=== PATIENT | male | born 1940 | race Caucasian/White ===

== ENCOUNTER 2018-03-15 12:14 | Inpatient (IN) | payer OTHER ==
[2018-03-15 13:10] LABS: BASO % 0.4 % (0.0-1.0); EOS # 0.1 10^3/uL (0.0-0.50); EOS % 1.6 % (0.0-3.0); HEMATOCRIT 50.4 % (42.0-52.0); HEMOGLOBIN 16.7 g/dl (13.5-17.5); IMMATURE GRANULOCYTE % 0.1 % (0-3.0); LYMPH # 1.7 10^3/uL (1.5-4.5); LYMPH % 18.9 % (24.0-44.0); MEAN CORPUSCULAR HEMOGLOBIN 30.8 pg (27.0-33.0); MEAN CORPUSCULAR HGB CONC 33.1 g/dl (32.0-36.5); MONO # 1.1 10^3/uL (0.0-0.8); MONO % 12.3 % (0.0-5.0); NEUTROPHILS # 5.9 10^3/uL (1.8-7.7); NEUTROPHILS % 66.7 % (36.0-66.0); PLATELET COUNT, AUTOMATED 189 10^3/uL (150-450); RED BLOOD COUNT 5.42 10^6/uL (4.30-6.10); RED CELL DISTRIBUTION WIDTH 13.3 % (11.5-14.5); WHITE BLOOD COUNT 8.9 10^3/uL (4.0-10.0)
[2018-03-15 13:16] LABS: ALBUMIN 3.7 GM/DL (3.2-5.2); ALBUMIN/GLOBULIN RATIO 1.37 (1.00-1.93); ALKALINE PHOSPHATASE 113 U/L (45-117); ALT/SGPT 37 U/L (12-78); ANION GAP 10 MEQ/L (8-16); AST/SGOT 27 U/L (7-37); BILIRUBIN,DIRECT 0.6 MG/DL (0.0-0.2); BILIRUBIN,TOTAL 1.4 MG/DL (0.2-1.0); BLOOD UREA NITROGEN 19 MG/DL (7-18); C REACTIVE PROTEIN QUANTITATIV 1.75 MG/DL (0.00-0.30); CARBON DIOXIDE LEVEL 26 MEQ/L (21-32); CHLORIDE LEVEL 103 MEQ/L (98-107); CPK CREATINE PHOSPHOKINASE 120 U/L (39-308); GLOMERULAR FILTRATION RATE > 60.0 (>42); GLUCOSE, FASTING 199 MG/DL (70-100); LIPASE 168 U/L (73-393); MAGNESIUM LEVEL 2.1 MG/DL (1.8-2.4); MB/CK RELATIVE INDEX 3.25 (< OR =4); POTASSIUM SERUM 4.3 MEQ/L (3.5-5.1); SODIUM LEVEL 139 MEQ/L (136-145); TOTAL PROTEIN 6.4 GM/DL (6.4-8.2); TROPONIN I 0.04 NG/ML (< 0.10)
[2018-03-15 13:28] LABS: INR 1.09; PROTHROMBIN TIME 14.2 SECONDS (12.1-14.4)
[2018-03-15 13:29] LABS: PARTIAL THROMBOPLASTIN TIME 33.5 SECONDS (25.4-37.6)
[2018-03-15 13:37] LABS: ERYTHROCYTE SEDIMENTATION RATE 1 mm/hr (0-20)
[2018-03-15 14:18] LABS: PSA SCREENING 0.5 NG/ML (< 4.0)
[2018-03-15 14:27] LABS: ESTIMATED AVERAGE GLUCOSE 232 MG/DL (60-110); HEMOGLOBIN A1c 9.7 %
[2018-03-15] MEDS ORDERED: ISOVUE-370 76% 100ML VIAL (Q9967) As Ordered (14:30)
[2018-03-15] MEDS: FUROSEMIDE 40 MG/4 ML VIAL (J1940) IV (17:02)
[2018-03-15 17:36] LABS: NT-PRO BNP 3527 PG/ML (<450)
[2018-03-15] MEDS ORDERED: GLUCAGON FOR INJ 1 MG VIAL (J1610) SC (19:30)
[2018-03-15] MEDS ORDERED: GLUCOSE 4 GM CHEW TABLET PO (19:30)
[2018-03-15] MEDS ORDERED: DEXTROSE 50% 50 ML SYRINGE IV (19:30)
[2018-03-15 19:56] LABS: CHOLESTEROL LEVEL 157 MG/DL (<200); CHOLESTEROL RISK RATIO 4.243 (<5); HDL CHOLESTEROL 37 MG/DL (>40); LDL CHOLESTEROL 104 MG/DL (<100); NON-HDL-C 120 MG/DL; TRIGLYCERIDES LEVEL 81 MG/DL (<150)
[2018-03-15 20:54] LABS: TROPONIN I 0.05 NG/ML (< 0.10)
[2018-03-15 21:18] LABS: BEDSIDE GLUCOSE 139 MG/DL (83-110)
[2018-03-15] MEDS: HumaLOG INSULIN (NovoLOG) PER UNIT SC (21:58)
[2018-03-15] MEDS: HEPARIN SOD (PORCINE) 5000 UNITS/ML VIAL SC (22:16)
[2018-03-16 03:09] LABS: TROPONIN I 0.04 NG/ML (< 0.10)
[2018-03-16 05:41] LABS: HEMATOCRIT 44.6 % (42.0-52.0); HEMOGLOBIN 14.8 g/dl (13.5-17.5); MEAN CORPUSCULAR HEMOGLOBIN 30.9 pg (27.0-33.0); MEAN CORPUSCULAR HGB CONC 33.2 g/dl (32.0-36.5); MEAN CORPUSCULAR VOLUME 93.1 fl (80.0-96.0); PLATELET COUNT, AUTOMATED 149 10^3/uL (150-450); RED BLOOD COUNT 4.79 10^6/uL (4.30-6.10); RED CELL DISTRIBUTION WIDTH 13.2 % (11.5-14.5); WHITE BLOOD COUNT 6.5 10^3/uL (4.0-10.0)
[2018-03-16] MEDS: FUROSEMIDE 20 MG/2 ML VIAL (J1940) IV (05:42)
[2018-03-16] MEDS: HEPARIN SOD (PORCINE) 5000 UNITS/ML VIAL SC ×3 (05:42→21:40)
[2018-03-16 05:53] LABS: ANION GAP 8 MEQ/L (8-16); BLOOD UREA NITROGEN 17 MG/DL (7-18); CALCIUM LEVEL 7.7 MG/DL (8.8-10.2); CARBON DIOXIDE LEVEL 28 MEQ/L (21-32); CHLORIDE LEVEL 105 MEQ/L (98-107); CREATININE FOR GFR 0.85 MG/DL (0.70-1.30); GLOMERULAR FILTRATION RATE > 60.0 (>42); GLUCOSE, FASTING 190 MG/DL (70-100); POTASSIUM SERUM 3.6 MEQ/L (3.5-5.1); SODIUM LEVEL 141 MEQ/L (136-145)
[2018-03-16] MEDS: HumaLOG INSULIN (NovoLOG) PER UNIT SC ×3 (08:50→17:57)
[2018-03-16] MEDS: FLUBLOK(EGG FREE)(QUAD)INFLUENZA VACC 0.5ML SYRINGE (90682)18YRS&OLDER IM (08:52)
[2018-03-16] MEDS: PNEUMOCOCCAL VACCINE 0.5ML SYRINGE(90732) PNEUMOVAX 23 IM (08:53)
[2018-03-16 11:55] LABS: BEDSIDE GLUCOSE 73 MG/DL (83-110)
[2018-03-16] MEDS: ASPIRIN 81 MG ENTERIC TAB PO (12:48)
[2018-03-16] MEDS: POTASSIUM CHLORIDE 10 MEQ SR TABLET PO (12:49)
[2018-03-16 16:59] LABS: BEDSIDE GLUCOSE 178 MG/DL (83-110)
[2018-03-16] MEDS: FUROSEMIDE 40 MG/4 ML VIAL (J1940) IV (17:58)
[2018-03-16] MEDS: ATORVASTATIN 20 MG TAB PO (20:27)
[2018-03-16 20:48] LABS: BEDSIDE GLUCOSE 102 MG/DL (83-110)
[2018-03-16 21:00] LABS: CREATININE,RANDOM URINE 38.7 MG/DL
[2018-03-16 21:00] LABS: TOTAL PROTEIN,RANDOM URINE < 5.0 MG/DL (0.0-12.0)
[2018-03-17] MEDS: FUROSEMIDE 40 MG/4 ML VIAL (J1940) IV ×2 (05:06→16:58)
[2018-03-17] MEDS: HEPARIN SOD (PORCINE) 5000 UNITS/ML VIAL SC ×3 (05:06→20:59)
[2018-03-17 05:56] LABS: HEMATOCRIT 46.4 % (42.0-52.0); HEMOGLOBIN 15.3 g/dl (13.5-17.5); MEAN CORPUSCULAR HEMOGLOBIN 30.5 pg (27.0-33.0); MEAN CORPUSCULAR VOLUME 92.4 fl (80.0-96.0); PLATELET COUNT, AUTOMATED 157 10^3/uL (150-450); RED BLOOD COUNT 5.02 10^6/uL (4.30-6.10); RED CELL DISTRIBUTION WIDTH 13.2 % (11.5-14.5); WHITE BLOOD COUNT 7.4 10^3/uL (4.0-10.0)
[2018-03-17 06:35] LABS: ANION GAP 8 MEQ/L (8-16); BLOOD UREA NITROGEN 22 MG/DL (7-18); CALCIUM LEVEL 8.2 MG/DL (8.8-10.2); CARBON DIOXIDE LEVEL 30 MEQ/L (21-32); CHLORIDE LEVEL 103 MEQ/L (98-107); CHOLESTEROL LEVEL 134 MG/DL (<200); CHOLESTEROL RISK RATIO 4.187 (<5); CREATININE FOR GFR 1.02 MG/DL (0.70-1.30); GLOMERULAR FILTRATION RATE > 60.0 (>42); GLUCOSE, FASTING 156 MG/DL (70-100); HDL CHOLESTEROL 32 MG/DL (>40); LDL CHOLESTEROL 79 MG/DL (<100); NON-HDL-C 102 MG/DL; POTASSIUM SERUM 4.5 MEQ/L (3.5-5.1); SODIUM LEVEL 141 MEQ/L (136-145); TRIGLYCERIDES LEVEL 117 MG/DL (<150)
[2018-03-17] MEDS: HumaLOG INSULIN (NovoLOG) PER UNIT SC ×3 (07:30→16:58)
[2018-03-17] MEDS: ASPIRIN 81 MG ENTERIC TAB PO (08:36)
[2018-03-17 11:33] LABS: BEDSIDE GLUCOSE 189 MG/DL (83-110)
[2018-03-17] MEDS: MIRALAX *UNIT DOSE* 17GM PACKET PO (12:22)
[2018-03-17] MEDS: SENOKOT S TAB PO ×2 (12:22→20:59)
[2018-03-17 16:39] LABS: BEDSIDE GLUCOSE 192 MG/DL (83-110)
[2018-03-17 20:01] LABS: BEDSIDE GLUCOSE 173 MG/DL (83-110)
[2018-03-17] MEDS: ATORVASTATIN 20 MG TAB PO (20:59)
[2018-03-18] MEDS: HEPARIN SOD (PORCINE) 5000 UNITS/ML VIAL SC ×3 (05:40→21:02)
[2018-03-18] MEDS: FUROSEMIDE 40 MG/4 ML VIAL (J1940) IV ×2 (05:40→17:33)
[2018-03-18 05:54] LABS: HEMATOCRIT 43.8 % (42.0-52.0); HEMOGLOBIN 14.5 g/dl (13.5-17.5); MEAN CORPUSCULAR HEMOGLOBIN 30.3 pg (27.0-33.0); MEAN CORPUSCULAR HGB CONC 33.1 g/dl (32.0-36.5); MEAN CORPUSCULAR VOLUME 91.6 fl (80.0-96.0); PLATELET COUNT, AUTOMATED 148 10^3/uL (150-450); RED BLOOD COUNT 4.78 10^6/uL (4.30-6.10); WHITE BLOOD COUNT 6.7 10^3/uL (4.0-10.0)
[2018-03-18 06:19] LABS: ANION GAP 7 MEQ/L (8-16); BLOOD UREA NITROGEN 21 MG/DL (7-18); CALCIUM LEVEL 7.8 MG/DL (8.8-10.2); CARBON DIOXIDE LEVEL 32 MEQ/L (21-32); CHLORIDE LEVEL 99 MEQ/L (98-107); CREATININE FOR GFR 0.96 MG/DL (0.70-1.30); GLOMERULAR FILTRATION RATE > 60.0 (>42); GLUCOSE, FASTING 149 MG/DL (70-100); MAGNESIUM LEVEL 1.9 MG/DL (1.8-2.4); POTASSIUM SERUM 3.6 MEQ/L (3.5-5.1); SODIUM LEVEL 138 MEQ/L (136-145)
[2018-03-18] MEDS: HumaLOG INSULIN (NovoLOG) PER UNIT SC ×3 (08:16→17:33)
[2018-03-18] MEDS: ASPIRIN 81 MG ENTERIC TAB PO (09:51)
[2018-03-18] MEDS: SENOKOT S TAB PO ×2 (09:51→21:01)
[2018-03-18] MEDS: MIRALAX *UNIT DOSE* 17GM PACKET PO (09:51)
[2018-03-18 11:38] LABS: BEDSIDE GLUCOSE 171 MG/DL (83-110)
[2018-03-18 16:26] LABS: BEDSIDE GLUCOSE 181 MG/DL (83-110)
[2018-03-18 19:57] LABS: BEDSIDE GLUCOSE 193 MG/DL (83-110)
[2018-03-18 19:57] LABS: BEDSIDE GLUCOSE 175 MG/DL (83-110)
[2018-03-18] MEDS: ATORVASTATIN 20 MG TAB PO (21:01)
[2018-03-19] MEDS: FUROSEMIDE 40 MG/4 ML VIAL (J1940) IV (05:37)
[2018-03-19] MEDS: HEPARIN SOD (PORCINE) 5000 UNITS/ML VIAL SC (05:37)
[2018-03-19 06:07] LABS: HEMATOCRIT 45.6 % (42.0-52.0); HEMOGLOBIN 15.1 g/dl (13.5-17.5); MEAN CORPUSCULAR HEMOGLOBIN 30.3 pg (27.0-33.0); MEAN CORPUSCULAR HGB CONC 33.1 g/dl (32.0-36.5); MEAN CORPUSCULAR VOLUME 91.6 fl (80.0-96.0); PLATELET COUNT, AUTOMATED 149 10^3/uL (150-450); RED BLOOD COUNT 4.98 10^6/uL (4.30-6.10); WHITE BLOOD COUNT 6.4 10^3/uL (4.0-10.0)
[2018-03-19 06:24] LABS: ANION GAP 6 MEQ/L (8-16); BLOOD UREA NITROGEN 21 MG/DL (7-18); CARBON DIOXIDE LEVEL 31 MEQ/L (21-32); CHLORIDE LEVEL 100 MEQ/L (98-107); CREATININE FOR GFR 0.85 MG/DL (0.70-1.30); GLOMERULAR FILTRATION RATE > 60.0 (>42); GLUCOSE, FASTING 146 MG/DL (70-100); MAGNESIUM LEVEL 1.9 MG/DL (1.8-2.4); POTASSIUM SERUM 3.6 MEQ/L (3.5-5.1); SODIUM LEVEL 137 MEQ/L (136-145)
[2018-03-19] MEDS: HumaLOG INSULIN (NovoLOG) PER UNIT SC ×2 (07:48→12:35)
[2018-03-19] MEDS: ASPIRIN 81 MG ENTERIC TAB PO (10:10)
[2018-03-19] MEDS: SENOKOT S TAB PO (10:10)
[2018-03-19] MEDS: MIRALAX *UNIT DOSE* 17GM PACKET PO (10:10)
[2018-03-19] MEDS: EUCERIN 120GM CREAM TOP (11:11)
[2018-03-19 11:34] LABS: NT-PRO BNP 2297 PG/ML (<450)
[2018-03-19 12:32] LABS: BEDSIDE GLUCOSE 199 MG/DL (83-110)
== END 2018-03-19 13:42 | disposition short-term general hospital (02) | DRG 293 ==
LOC: M ED 12:14 → M ED INP 19:19 → M MSPAV 21:03
DX: I11.0 Hypertensive heart disease with heart failure (principal); I50.33 Acute on chronic diastolic (congestive) heart failure; E11.9 Type 2 diabetes mellitus without complications; E66.9 Obesity, unspecified; Z68.38 Body mass index [BMI] 38.0-38.9, adult; I35.0 Nonrheumatic aortic (valve) stenosis; M17.2 Bilateral post-traumatic osteoarthritis of knee; Z88.0 Allergy status to penicillin; R60.1 Generalized edema; Z91.19 Patient's noncompliance with other medical treatment and regimen

== ENCOUNTER → 2018-10-14 | Outpatient (CLI) | payer MEDICARE ==
--- NOTE | 2018-10-14 23:01 | REP ---
Clinical: Hypertension and chronic medical renal disease. Technique: Whitfield scale and color Doppler evaluation of the kidneys and renal vasculature using curved array transducer. Findings: The kidneys demonstrate increased parenchymal echogenicity suggesting chronic medical renal disease without hydronephrosis. Right kidney measures 11.9 x 5.2 x 4.9 cm and includes multiple parenchymal and cortical based simple and complex cysts measuring up to roughly 3.5 cm maximal diameter. Left kidney measures 10.8 x 5.7 x 5.4 cm and includes multiple simple and complex cysts measuring up to 2.4 cm maximal diameter. Bladder is incompletely distended and grossly normal by current evaluation. Prostate gland is heterogeneous and measures 4.8 x 4.4 x 5.0 cm. Color Doppler evaluation of the renal vasculature demonstrates normal arterial wave patterns, velocities, renal aortic ratios, resistive indices and the acceleration time. No sonographic evidence for renal arterial stenosis noted. Renal vein is patent. Right Kidney: Peak arterial velocity: 71 cm/sec . Renal aortic ratio: 1.4 . Resistive indices: 0.56 - 0.79 . Acceleration times: 0.04 - 0.06 . Left kidney: Peak arterial velocity: 87 cm/sec . Renal aortic ratio: 1.7 . Resistive indices: 0.62 - 0.17 . Acceleration times: 0.03 - 0.04 . Impression: 1. Evidence for chronic medical renal disease with suspected bilateral simple and complex cysts. No hydronephrosis. 2. No sonographic evidence for renal arterial stenosis. Electronically Signed by Wilmer Gaxiola MD 10/14/2018 10:53 P
== END ==
LOC: M RAD 08:56
PROVIDERS: ATTEND Family Medicine
DX: N40.0 Benign prostatic hyperplasia without lower urinary tract symptoms (principal); I70.1 Atherosclerosis of renal artery; N28.1 Cyst of kidney, acquired

== ENCOUNTER → 2018-10-30 | Outpatient (CLI) | payer MEDICARE ==
[2018-10-30 18:05] LABS: APPEARANCE, URINE HAZY (CLEAR); BACTERIA, URINE AUTO NEGATIVE (NEGATIVE); BILIRUBIN, URINE AUTO NEGATIVE (NEGATIVE); BLOOD, URINE BLOOD NEGATIVE (NEGATIVE); COLOR, URINE YELLOW (YELLOW); GLUCOSE, URINE (UA) AUTO NEGATIVE (NEGATIVE); KETONE, URINE AUTO NEGATIVE (NEGATIVE); LEUKOCYTE ESTERASE, URINE AUTO NEGATIVE (NEGATIVE); NITRITE, URINE AUTO NEGATIVE (NEGATIVE); PROTEIN, URINE AUTO NEGATIVE (NEGATIVE); RBC, URINE AUTO 2 /HPF (0-3); SPECIFIC GRAVITY URINE AUTO 1.017 (1.002-1.035); SQUAMOUS EPITHELIAL CELL UR AU 0 /HPF (0-6); UROBILINOGEN, URINE AUTO 0.2 mg/dL (0.0-2.0); WBC, URINE AUTO 2 /HPF (0-3)
== END ==
LOC: M WUC 15:42
PROVIDERS: ATTEND Nurse Practitioner Family
DX: N28.1 Cyst of kidney, acquired (principal)
CPT/HCPCS: 51798; 81001; 87086; G0463

== ENCOUNTER → 2018-11-03 | Outpatient (REF) | payer MEDICARE ==
[2018-11-03 19:20] LABS: CALCIUM LEVEL 9.2 MG/DL (8.8-10.2); CREATININE FOR GFR 1.46 MG/DL (0.70-1.30); GLOMERULAR FILTRATION RATE 49.6 (>42); POTASSIUM SERUM 4.4 MEQ/L (3.5-5.1)
== END ==
LOC: M LABDRWAD 19:03
PROVIDERS: ATTEND Nurse Practitioner Family
DX: N28.1 Cyst of kidney, acquired (principal)

== ENCOUNTER → 2018-12-26 | Outpatient (CLI) | payer MEDICARE ==
[~2018-12-26] MED LIST: PROHANCE 279.3MG/ML 5ML VIAL (A9576) As Ordered ONE
--- NOTE | 2018-12-27 06:51 | REP ---
MRI KIDNEYS WITH AND WITHOUT CONTRAST: COMPARISON: Renal ultrasound 10/14/[address] 03/15/2018. Both kidneys demonstrate multiple cysts. Most are subcentimeter in size. Two dominant cysts of the right kidney in the upper aspect are exophytic, one anteriorly and one laterally, both measuring 3.2 to 3.3 cm in maximum diameter. The largest cyst on the left is also exophytic anterolaterally in the upper pole, 2.3 cm in maximum diameter. None of the bilateral renal cysts demonstrate suspicious enhancement and all appear benign. There is no hydronephrosis. The visualized liver, spleen, adrenals, pancreas are unremarkable. No adenopathy or free fluid is seen in the visualized abdomen. IMPRESSION: Multiple bilateral renal cysts appear benign with no suspicious characteristics. Electronically Signed by Lalo Whitfield MD 12/28/2018 05:40 P
== END ==
LOC: M RAD 16:12
PROVIDERS: ATTEND Nurse Practitioner Family
DX: N28.1 Cyst of kidney, acquired (principal)
CPT/HCPCS: 74183; A9576

== ENCOUNTER → 2019-03-10 | Outpatient (REF) | payer MEDICARE ==
[~2019-03-10] MED LIST changes: +ASPI81TA85 PO; +CHOL100029 PO; +FINA5TAB2 PO; +MAGN400C PO; +METF500T13 PO; +METO50TA7 PO; +MULTCAP PO; +PRAV20TA2 PO; -PROHANCE 279.3MG/ML 5ML VIAL (A9576) As Ordered ONE; +VITA500C24 PO
[2019-03-10 14:35] LABS: TOTAL VOLUME, URINE 1300 ML
[2019-03-10 15:17] LABS: TOTAL PROTEIN 24 HOUR URINE 656.5 MG/24HR (50-150); TOTAL PROTEIN,RANDOM URINE 50.5 MG/DL (0.0-12.0); URINE TOTAL PROTEIN 50.5 MG/DL (0-12)
[2019-03-12 15:33] LABS: UPEP INTERPRETATION M-SPIKE IN BETA 2; URINE VOLUME 1300 ML
== END ==
LOC: M LAB REF 13:49
PROVIDERS: ATTEND Internal Medicine Hematology
DX: D47.2 Monoclonal gammopathy (principal)

== ENCOUNTER → 2019-03-11 | Outpatient (CLI) | payer MEDICARE ==
[~2019-03-11] MED LIST changes: +LIDOCAINE 1% MDV 20ML VIAL As Ordered ONE
[2019-03-11 13:53] VITALS: BP 166/82
--- NOTE | 2019-03-11 14:50 | REP ---
IR CT guided bone marrow biopsy. Clinical information: MGUS. Renal disease. Physician: Dr. Wilks. Procedure: The patient was advised of the benefits, risks and alternatives of the procedure and informed consent was obtained. The time-out was performed with verification of the patient's name, MRN, site of procedure and type of procedure to be performed. The patient was positioned in the prone position on the table. The site was prepped and draped in the usual sterile fashion. The physician spent 45 minutes of continuous face to face time with the patient. Preliminary CT of the pelvis demonstrates osteolucencies within the iliac bones. The anticipated puncture site over the right iliac bone was anesthetized with lidocaine. A bone biopsy device was inserted into the right iliac bone under intermittent CT guidance. Aspirate, clot and core were obtained per protocol. The specimen was labeled with the patient's name and medical record number and sent for further analysis. The biopsy device was removed, pressure held and hemostasis achieved. A sterile dressing was applied to the site. The patient tolerated the procedure well and was returned to the PRU in stable condition. EBL: < 5 ml. Complications: None. Conclusion: 1. 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 2. Successful CT guided bone marrow biopsy. Patient to follow up with referring provider for biopsy results. Thank you for this referral. Electronically Signed by Teresa Wilks MD 03/11/2019 01:46 P
== END ==
LOC: M IRPRO 12:22
PROVIDERS: ATTEND Radiology Diagnostic Radiology
DX: D47.2 Monoclonal gammopathy (principal); N28.9 Disorder of kidney and ureter, unspecified; Z79.899 Other long term (current) drug therapy

== ENCOUNTER → 2019-05-20 | Outpatient (CLI) | payer MEDICARE ==
[~2019-05-20] MED LIST changes: +CYCL1CAP2 PO; +DECA4TAB PO; -LIDOCAINE 1% MDV 20ML VIAL As Ordered ONE; +VITA500079 PO
--- NOTE | 2019-05-20 14:52 | REP ---
Clinical: Monoclonal gammopathy. Technique: Standard radiographic adult bone survey (16 total images). Findings: Generalized age-related degenerative changes are appreciated primarily involving the cervical, thoracic, lumbar spine as well as degenerative changes to the pelvis/hips and bilateral knees. No pathologic fractures are identified and no lytic, blastic, or sclerotic osseous lesions are appreciated to suggest malignancy or significant pathology. Impression: 1. Generalized age-related degenerative changes. 2. No evidence for metastatic disease or further significant osseous pathology. Electronically Signed by Wilmer Gaxiola MD 05/20/2019 02:42 P
== END ==
LOC: M RAD 13:31
PROVIDERS: ATTEND Internal Medicine Hematology
DX: D47.2 Monoclonal gammopathy (principal); M15.9 Polyosteoarthritis, unspecified

== ENCOUNTER → 2019-12-02 | Outpatient (CLI) | payer MEDICARE ==
[~2019-12-02] MED LIST changes: -ASPI81TA85 PO; +ASPI81TA86 PO
--- NOTE | 2019-12-14 13:17 | REP ---
CAROTID DOPPLER ULTRASOUND CLINICAL: Prior endarterectomy and stent placement. TECHNIQUE: Real-time cruz scale and color Doppler evaluation using linear high frequency transducer FINDINGS: Minimal bilateral intimal thickening is appreciated of the carotid arteries extending to the carotid bulbs. Relatively normal laminar flow is appreciated without obvious areas of stenosis/stricture or occlusion. A stent is identified in the proximal left internal carotid artery with satisfactory flow and no evidence for stenosis or occlusion. Normal flow direction noted to the vertebral arteries. PEAK FLOW VELOCITY ANALYSIS RIGHT LEFT ICA PSV 106.0 cm/s 99.8 cm/s ICA EDV 27.1 cm/s 20.5 cm/s ECA PSV 98.5 cm/s 195.1 cm/s CCA PSV 85.9 cm/s 76.4 cm/s ICA/CCA RATIO 1.23 1.31 IMPRESSION: 1. Left internal carotid stent noted and patent. 2. Bilateral smooth intimal thickening without evidence for stenosis or occlusion. MTDD
== END ==
LOC: M RAD 15:38
PROVIDERS: ATTEND Family Medicine
DX: I65.22 Occlusion and stenosis of left carotid artery (principal); Z95.828 Presence of other vascular implants and grafts

== ENCOUNTER → 2020-05-09 | Outpatient (REF) | payer MEDICARE ==
[~2020-05-09] MED LIST changes: +BAYE325T12 PO; +MULT-90 PO; +NORV5TAB PO; +PRAV40TA2 PO; +TERA10CA3 PO
[2020-05-09 19:00] LABS: ALBUMIN 4.1 GM/DL (3.2-5.2); BILIRUBIN,TOTAL 0.5 MG/DL (0.2-1.0); CHOLESTEROL RISK RATIO 6.466 (<5); CREATININE FOR GFR 1.6 MG/DL (0.70-1.30); GLOMERULAR FILTRATION RATE 44.4 (>35); POTASSIUM SERUM 4.8 MEQ/L (3.5-5.1); TOTAL PROTEIN 7.1 GM/DL (6.4-8.2)
== END ==
LOC: M LABDRWAD 16:18
PROVIDERS: ATTEND Physician Assistant Medical
DX: I35.0 Nonrheumatic aortic (valve) stenosis (principal); I50.33 Acute on chronic diastolic (congestive) heart failure; I50.22 Chronic systolic (congestive) heart failure; E78.2 Mixed hyperlipidemia; N18.9 Chronic kidney disease, unspecified; I11.0 Hypertensive heart disease with heart failure; Z95.2 Presence of prosthetic heart valve; I65.22 Occlusion and stenosis of left carotid artery; I25.10 Atherosclerotic heart disease of native coronary artery without angina pectoris; R60.9 Edema, unspecified; E66.9 Obesity, unspecified

== ENCOUNTER → 2020-05-09 | Outpatient (REF) | payer MEDICARE ==
[2020-05-09 18:28] LABS: BASO # 0.1 10^3/uL (0.0-0.2); BASO % 0.9 % (0.0-1.0); EOS # 0.4 10^3/uL (0.0-0.5); EOS % 4.3 % (0.0-3.0); HEMOGLOBIN 16.3 g/dl (13.5-17.5); LYMPH # 1.8 10^3/uL (1.5-5.0); LYMPH % 21.8 % (24.0-44.0); MEAN CORPUSCULAR HEMOGLOBIN 32.2 pg (27.0-33.0); MEAN CORPUSCULAR VOLUME 94.9 fl (80.0-96.0); MONO # 0.9 10^3/uL (0.0-0.8); MONO % 11.4 % (0.0-5.0); NEUTROPHILS % 61.2 % (36.0-66.0); PLATELET COUNT, AUTOMATED 199 10^3/uL (150-450); RED BLOOD COUNT 5.06 10^6/uL (4.30-6.10); WHITE BLOOD COUNT 8.2 10^3/uL (4.0-10.0)
[2020-05-09 18:59] LABS: ALBUMIN 4.2 GM/DL (3.2-5.2); ALT/SGPT 35 U/L (12-78); BILIRUBIN,TOTAL 0.4 MG/DL (0.2-1.0); BLOOD UREA NITROGEN 33 MG/DL (7-18); CALCIUM LEVEL 9.2 MG/DL (8.8-10.2); CARBON DIOXIDE LEVEL 28 MEQ/L (21-32); CHLORIDE LEVEL 104 MEQ/L (98-107); GLOMERULAR FILTRATION RATE 41.4 (>35); GLUCOSE, FASTING 254 MG/DL (70-100); SODIUM LEVEL 141 MEQ/L (136-145); TOTAL PROTEIN 7.1 GM/DL (6.4-8.2)
[2020-05-11 12:32] LABS: ALBUMIN 4.55 GM/DL (3.29-5.55); ALBUMIN % 64.1 % (55.8-66.1); ALPHA-1-GLOBULIN % 3.7 % (2.9-4.9); ALPHA-1-GLOBULINS 0.26 GM/DL (0.17-0.41); ALPHA-2-GLOBULINS 0.94 GM/DL (0.42-0.99); ALPHA-2-GLOBULINS % 13.3 % (7.1-11.8); BETA-1-GLOBULINS 0.48 GM/DL (0.28-0.60); BETA-1-GLOBULINS % 6.8 % (4.7-7.2); BETA-2-GLOBULINS % 4.2 % (3.2-6.5); GAMMA GLOBULIN % 7.9 % (11.1-18.8); GAMMA GLOBULINS 0.56 GM/DL (0.65-1.58)
== END ==
LOC: M LABDRWAD 16:15 → M LAB REF 16:15
PROVIDERS: ATTEND Specialist
DX: C90.00 Multiple myeloma not having achieved remission (principal); I35.0 Nonrheumatic aortic (valve) stenosis; I50.33 Acute on chronic diastolic (congestive) heart failure; I50.22 Chronic systolic (congestive) heart failure; E78.2 Mixed hyperlipidemia; N18.9 Chronic kidney disease, unspecified; I11.0 Hypertensive heart disease with heart failure; Z95.2 Presence of prosthetic heart valve; I65.22 Occlusion and stenosis of left carotid artery; I25.10 Atherosclerotic heart disease of native coronary artery without angina pectoris; R60.9 Edema, unspecified; E66.9 Obesity, unspecified

== ENCOUNTER → 2022-07-02 | Outpatient (CLI) | payer MEDICARE ==
[~2022-07-02] MED LIST changes: +AMLO1TAB25 PO; +ASPI81CH33 PO; +FURO40TA2 PO; +PRAV40TA2; +PRAV80TA2 PO; +SITA50TAB PO; +VITA100093 PO
== END ==
LOC: M LABSMTC 09:59
PROVIDERS: ATTEND Anesthesiology
DX: Z01.812 Encounter for preprocedural laboratory examination (principal); Z20.822 Contact with and (suspected) exposure to COVID-19

== ENCOUNTER 2022-07-05 08:36 | Day surgery (SDC) | payer MEDICARE ==
[~2022-07-05] VITALS: Ht 167.6 cm; Wt 106.1 kg
[~2022-07-05 08:36] MED LIST changes: +BSS IRRIG/VANCO(10MG)/TOBRA(5MG)/EPINEPH(1:1000-0.5CC)500ML BAG-ORONLY IR ONE; +CYCLOPENTOLATE 1% OPHTH SOLN 2ML BTL OS SCH; +LIDOCAINE 1% SDV 5ML VIAL As Ordered ONE; +LIDOCAINE 3.5 % 1ML OPHTH TOPICAL GEL OU ONE; +MIDAZOLAM INJ 2MG/2ML VIAL As Ordered ONE; +OFLOXACIN 0.3 % (OCUFLOX) OPTH SOL 5ML OS ONE; +PHENYLEPHRINE 10% OPHTH SOL 5ML OS PRN; +PHENYLEPHRINE 2.5% OPHTH SOL 2ML OS SCH; +TROPICAMIDE 1% OPHTH SOLN 15ML OS SCH; +fentaNYL 100 MCG/2 ML INJECTION As Ordered ONE
[2022-07-05] MEDS ORDERED: LABETALOL 100MG/20ML VIAL As Ordered ONE (11:32)
[2022-07-05] MEDS ORDERED: CEFUROXIME 1MG/0.1ML INTRACAMERAL INJ As Ordered ONE (11:35)
[2022-07-05] MEDS ORDERED: ACETYLCHOLINE OPHTH SOLN 1% 2ML (MIOCHOL-E) As Ordered ONE (11:43)
[2022-07-05 12:00] VITALS: BP 190/83
== END 2022-07-05 12:20 | disposition home or self-care (01) ==
LOC: M SDC 08:36
PROVIDERS: ATTEND Ophthalmology
DX: H25.12 Age-related nuclear cataract, left eye (principal); H40.812 Glaucoma with increased episcleral venous pressure, left eye; I10 Essential (primary) hypertension; E78.5 Hyperlipidemia, unspecified; E11.9 Type 2 diabetes mellitus without complications; Z88.0 Allergy status to penicillin; Z88.5 Allergy status to narcotic agent; Z79.899 Other long term (current) drug therapy
CPT/HCPCS: 66991; C1783; J0697; J2250; J3010; V2632

== ENCOUNTER → 2023-04-11 | Outpatient (REF) | payer MEDICARE ==
[~2023-04-11] MED LIST changes: -BSS IRRIG/VANCO(10MG)/TOBRA(5MG)/EPINEPH(1:1000-0.5CC)500ML BAG-ORONLY IR ONE; -CYCLOPENTOLATE 1% OPHTH SOLN 2ML BTL OS SCH; -LIDOCAINE 1% SDV 5ML VIAL As Ordered ONE; -LIDOCAINE 3.5 % 1ML OPHTH TOPICAL GEL OU ONE; -MIDAZOLAM INJ 2MG/2ML VIAL As Ordered ONE; -OFLOXACIN 0.3 % (OCUFLOX) OPTH SOL 5ML OS ONE; -PHENYLEPHRINE 10% OPHTH SOL 5ML OS PRN; -PHENYLEPHRINE 2.5% OPHTH SOL 2ML OS SCH; +ROSU20TA61; -TROPICAMIDE 1% OPHTH SOLN 15ML OS SCH; -fentaNYL 100 MCG/2 ML INJECTION As Ordered ONE
== END ==
LOC: M LAB REF 15:12
PROVIDERS: ATTEND Internal Medicine Hematology & Oncology
DX: N19 Unspecified kidney failure (principal)

== ENCOUNTER → 2024-07-13 | Outpatient (CLI) | payer MEDICARE ==
[~2024-07-13] MED LIST changes: -BAYE325T12 PO; +BAYE325T2 PO; -ROSU20TA61; +ROSU20TA86 PO; +TERA2CAP3 PO
== END ==
LOC: M RAD 13:59
PROVIDERS: ATTEND Surgery Vascular Surgery
DX: I65.23 Occlusion and stenosis of bilateral carotid arteries (principal)